=== PATIENT | male | born 1995 | race Caucasian/White ===

== ENCOUNTER 2020-11-05 12:46 | Emergency (ER) | payer MEDICARE, OTHER ==
[~2020-11-05 12:46] MED LIST: BACTRIM DS TAB1 EACH PO; IBU800 MG PO
[2020-11-05 15:52] LABS: HEMOGLOBIN 11.3 gm/dl (14.0-17.5); RED BLOOD COUNT 3.73 M/UL (4.20-5.50); WHITE BLOOD COUNT 4.5 K/UL (4.5-11.0)
[2020-11-05 16:09] LABS: BUN/CREATININE RATIO 13 (0-10)
== END 2020-11-05 22:12 | disposition home or self-care (01) ==
LOC: ER1 12:46
PROVIDERS: Family Medicine
DX: F19.10 Other psychoactive substance abuse, uncomplicated (principal); F17.200 Nicotine dependence, unspecified, uncomplicated; Z87.828 Personal history of other (healed) physical injury and trauma
CPT/HCPCS: 80053; 80307; 81001; 85025; 99285; G0480

== ENCOUNTER → 2021-02-08 | Outpatient (CLI) | payer OTHER | LOC: KOH-I 16:00 | DX: S06.9X0A Unspecified intracranial injury without loss of consciousness, initial encounter (principal); G93.89 Other specified disorders of brain; X58.XXXA Exposure to other specified factors, initial encounter; Z98.890 Other specified postprocedural states | CPT/HCPCS: 70450 ==

== ENCOUNTER → 2021-03-13 | Outpatient (CLI) | payer OTHER | LOC: CT 07:35 | DX: R10.32 Left lower quadrant pain (principal); K59.00 Constipation, unspecified | CPT/HCPCS: Q9967 ==

== ENCOUNTER 2021-04-02 12:41 | Emergency (ER) | payer MEDICARE, OTHER ==
[2021-04-02 14:30] LABS: HEMOGLOBIN 12.2 gm/dl (14.0-17.5); RED BLOOD COUNT 3.91 M/UL (4.20-5.50); WHITE BLOOD COUNT 4.4 K/UL (4.5-11.0)
[2021-04-02 15:00] LABS: BUN/CREATININE RATIO 25 (0-10)
== END 2021-04-02 15:39 | disposition home or self-care (01) ==
LOC: ER1 12:41
PROVIDERS: Physician Assistant
DX: R40.0 Somnolence (principal); T50.995A Adverse effect of other drugs, medicaments and biological substances, initial encounter; F17.200 Nicotine dependence, unspecified, uncomplicated; Z79.899 Other long term (current) drug therapy
CPT/HCPCS: 70450; 80053; 85025; 93005; 99284; J7030

== ENCOUNTER 2021-06-20 09:11 | Emergency (ER) | payer MEDICARE, OTHER ==
[2021-06-20] MEDS ORDERED: ZITHROMAX250 MG PO (15:19)
== END 2021-06-20 09:58 | disposition home or self-care (01) ==
LOC: ER1 09:11
DX: G40.909 Epilepsy, unspecified, not intractable, without status epilepticus (principal); F17.200 Nicotine dependence, unspecified, uncomplicated
CPT/HCPCS: 70450; 71045; 80053; 80307; 81001; 83605; 83690; 85025; 85652; 86140; 87040; 96374; 99284; J1953; J7030